=== PATIENT | female | born 1995 | race Two or more races ===

== ENCOUNTER → 2019-06-15 | Outpatient (CLI) | payer MEDICAID ==
[2019-06-15 10:12] LABS: Basophils # (auto) 0 uL; Basophils % (auto) 0.3 % (0.0-2.0); Eosinophils # (auto) 0.1 uL; Eosinophils % (auto) 0.9 % (0.0-7.0); Hemoglobin 11.6 g/dL (12.2-16.2); Lymphocytes # (auto) 1.3 uL; Mean Corpuscular Hemoglobin 29.6 pg (28.0-32.0); Mean Corpuscular Hgb Conc. 34.1 g/dL (32.0-36.0); Mean Corpuscular Volume 86.9 fL (80.0-100.0); Monocytes # (auto) 0.3 uL; Monocytes % (auto) 3.8 % (0.0-12.0); Neutrophils # (auto) 6.5 uL; Nucleated Red Blood Cells % 0.1 %; Platelet Count (auto) 194 10^3/uL (140-450); Red Blood Cells 3.92 10^6/uL (4.0-5.20); Red Cell Distribution Width 13.6 % (11.8-14.3); White Blood Cell 8.2 10^3/uL (4.4-10.8)
== END | disposition home or self-care (01) ==
LOC: LAB 09:45
PROVIDERS: ATTEND Obstetrics & Gynecology
DX: O23.593 Infection of other part of genital tract in pregnancy, third trimester (principal); Z3A.35 35 weeks gestation of pregnancy
CPT/HCPCS: 87081

== ENCOUNTER 2019-07-21 16:17 | Observation (INO) | payer MEDICAID ==
[2019-07-25] MEDS ORDERED: PREN-96 PO (10:17)
== END 2019-07-21 18:03 | disposition home or self-care (01) | DRG 566 ==
LOC: LDRP 16:17
PROVIDERS: ADMIT Obstetrics & Gynecology; ATTEND Obstetrics & Gynecology
DX: O48.0 Post-term pregnancy (principal); Z3A.40 40 weeks gestation of pregnancy
CPT/HCPCS: 59025; 76818; 81002; G0378

== ENCOUNTER 2019-07-23 12:55 | Observation (INO) | payer MEDICAID ==
[~2019-07-23] VITALS: Ht 170.2 cm; Wt 75.7 kg
[2019-07-25] MEDS ORDERED: PREN-96 PO (10:17)
== END 2019-07-23 14:43 | disposition home or self-care (01) | DRG 566 ==
LOC: LDRP 12:55
PROVIDERS: ADMIT Specialist; ATTEND Specialist
DX: O48.0 Post-term pregnancy (principal); Z3A.40 40 weeks gestation of pregnancy
CPT/HCPCS: 59025; 76818; 81002; G0378

== ENCOUNTER → 2023-06-11 | Emergency (ER) | payer MEDICAID ==
[~2023-06-11] VITALS: Ht 162.6 cm; Wt 77.2 kg
[~2023-06-11] MED LIST: AMOX500C2 PO; PREN-96 PO
[2023-06-11 22:30] VITALS: BP 125/82; PULSE 87; RESP 16; O2SAT 97
== END | disposition home or self-care (01) ==
LOC: ER 22:30
DX: O99.611 Diseases of the digestive system complicating pregnancy, first trimester (principal); K08.89 Other specified disorders of teeth and supporting structures; Z3A.11 11 weeks gestation of pregnancy

== ENCOUNTER 2023-12-29 11:26 | Observation (INO) | payer MEDICAID ==
[2023-12-29 12:52] LABS: Basophils # (auto) 0 10 ^3/uL (0-0.2); Eosinophils # (auto) 0 10 ^3/uL (0-0.8); Lymphocytes # (auto) 1.3 10 ^3/uL (0.4-5.4); Mean Corpuscular Hemoglobin 26.7 pg (28.0-32.0); Mean Corpuscular Volume 82.2 fL (80.0-100.0); Red Blood Cells 4.26 10^6/uL (4.0-5.20); White Blood Cell 8.8 10^3/uL (4.4-10.8)
[2023-12-29 12:54] LABS: Basophils % (auto) 0.2 % (0.0-2.0); Eosinophils % (auto) 0.5 % (0.0-7.0); Hemoglobin 11.4 g/dL (12.2-16.2); Lymphocytes % (auto) 14.7 % (10.0-50.0); Mean Corpuscular Hgb Conc. 32.5 g/dL (32.0-36.0); Monocytes # (auto) 0.5 10 ^3/uL (0-1.3); Monocytes % (auto) 5.5 % (0.0-12.0); Neutrophils # (auto) 6.9 10 ^3/uL (1.6-8.6); Neutrophils % (auto) 79.1 % (37.0-80.0); Nucleated Red Blood Cells % 0.1 %; Red Cell Distribution Width 16.2 % (11.8-14.3)
[2023-12-30 08:07] LABS: RPR Non Reactive (Non Reactive)
[2023-12-31 19:06] LABS: Treponema pallidum Ab (FTA-Ab) Non Reactive (Non Reactive)
== END 2023-12-29 13:09 | disposition home or self-care (01) ==
LOC: LDRP 11:26 → UNDOADMOB 11:26 → LDRP 12:02 → UNDODISOB 13:09
PROVIDERS: ADMIT Obstetrics & Gynecology; ATTEND Obstetrics & Gynecology
DX: O48.0 Post-term pregnancy (principal); Z3A.40 40 weeks gestation of pregnancy
CPT/HCPCS: 36415; 59025; 76818; 81002; 85025; 86592; 94760; G0378

== ENCOUNTER 2023-12-31 14:08 | Observation (INO) | payer MEDICAID | END 2023-12-31 17:05 | disposition home or self-care (01) | LOC: LDRP 14:08 → UNDOADMOB 14:08 → LDRP 14:10 | PROVIDERS: ADMIT Obstetrics & Gynecology; ATTEND Obstetrics & Gynecology | DX: O48.0 Post-term pregnancy (principal); O62.9 Abnormality of forces of labor, unspecified; Z3A.40 40 weeks gestation of pregnancy | CPT/HCPCS: 59025; 76818; 81002; 94760; G0378 ==

== ENCOUNTER 2024-01-01 07:37 | Inpatient (IN) | payer MEDICAID ==
[~2024-01-01] VITALS: Ht 160 cm; Wt 83.9 kg
[2024-01-01] MEDS ORDERED: BUTORPHANOL TARTRATE 2 MG/1 ML VIAL IV PRN ×2 (08:15)
[2024-01-01] MEDS ORDERED: PROMETHAZINE HCL 25 MG/ML 1ML IV PRN (08:15)
[2024-01-01] MEDS ORDERED: LIDOCAINE 2%HCL (LOCAL ANESTH.) INJ 20ML MDV IJ PRN (08:15)
[2024-01-01 08:28] LABS: Urine Bacteria FEW /hpf (None Seen); Urine Blood 2+ /uL (Negative); Urine Clarity HAZY (Clear); Urine Color Yellow (Yellow); Urine Protein, UAD TRACE (Negative); Urine Specific Gravity 1.013 (1.001-1.035); Urine Urobilinogen Normal (Negative); Urine WBC 6 /hpf (0 - 5); Urine pH 6.5 (5.0-8.0)
[2024-01-01] MEDS: LACTATED RINGER'S 1,000 ML IV SCH (08:39)
[2024-01-01 08:41] LABS: Amphetamine Screen, Urine Neg (NEGATIVE)
[2024-01-01 08:43] LABS: Barbiturate Scree,Urine Neg (NEGATIVE); Benzodiazephine Screen, Urine Neg (NEGATIVE); Cocaine Screen, Urine Neg (NEGATIVE)
[2024-01-01 08:44] LABS: Cannabinoid Screen, Urine Neg (NEGATIVE); Opiate Scree,Urine Neg (NEGATIVE); Phencyclidine Screen, Urine Neg (NEGATIVE)
[2024-01-01 08:47] LABS: Basophils # (auto) 0 10 ^3/uL (0-0.2); Basophils % (auto) 0.2 % (0.0-2.0); Eosinophils # (auto) 0 10 ^3/uL (0-0.8); Eosinophils % (auto) 0.3 % (0.0-7.0); Hematocrit 37.5 % (36.0-46.0); Lymphocytes # (auto) 1.7 10 ^3/uL (0.4-5.4); Lymphocytes % (auto) 18.6 % (10.0-50.0); Mean Corpuscular Hemoglobin 26.4 pg (28.0-32.0); Mean Corpuscular Volume 82.5 fL (80.0-100.0); Monocytes # (auto) 0.5 10 ^3/uL (0-1.3); Monocytes % (auto) 4.9 % (0.0-12.0); Neutrophils # (auto) 7.1 10 ^3/uL (1.6-8.6); Red Blood Cells 4.55 10^6/uL (4.0-5.20); Red Cell Distribution Width 16.2 % (11.8-14.3); White Blood Cell 9.4 10^3/uL (4.4-10.8)
[2024-01-01 08:59] LABS: Fern Testing Negative
[2024-01-01 09:02] LABS: Alanine Aminotransferase 24 U/L (7-40); Albumin 4.3 g/dL (3.2-4.8); Alkaline Phosphatase 214 U/L (46-116); Anion Gap 10 (5-15); Aspartate Aminotransferase 30 U/L (13-40); BUN/Creatinine Ratio 12.3 (10.0-20.0); Bilirubin, Total 0.4 mg/dL (0.2-1.0); Blood Urea Nitrogen 8 mg/dL (9-23); Calcium 9.5 mg/dL (8.5-10.1); Carbon Dioxide 22 mmol/L (20-30); Chloride 106 mmol/L (98-107); Glucose 96 mg/dL (74-106); Potassium 4.2 mmol/L (3.5-5.1); Sodium 138 mmol/L (136-145)
[2024-01-01 09:03] LABS: Total Protein 7.1 g/dL (5.7-8.2)
[2024-01-01 09:04] LABS: INR 0.95 (0.9-1.15); Partial Thromboplastin Time 30.6 SEC (24.5-34.5)
[2024-01-01] MEDS: PHISODERM TOP SOLN 240ML BTL TOP PRN (09:39)
[2024-01-01] MEDS: DERMOPLAST 60ML BOTTLE TOP PRN (09:39)
[2024-01-01] MEDS: WITCH HAZEL-GLYCERIN PAD TOP PRN (09:39)
[2024-01-01] MEDS: ROPIVACAINE HCL 200 ML ONE (09:42)
[2024-01-01] MEDS ORDERED: LACT. RINGERS/OXYTOCIN 20UNITS 1,000 ML IV SCH (10:45)
[2024-01-01] MEDS ORDERED: TERBUTALINE SULFATE 1 MG/ML 1ML VIAL SC PRN (10:45)
[2024-01-01] MEDS ORDERED: LACT. RINGERS/OXYTOCIN 20UNITS 1,000 ML IV ONE (10:56)
[2024-01-01] MEDS: METHYLERGONOVINE MALEATE 0.2 MG/ML AMP IM ONE (10:58)
[2024-01-01] MEDS: ePHEDrine SULFATE 50 MG/ML AMP ONE (11:23)
[2024-01-01] MEDS: LACT. RINGERS/OXYTOCIN 20UNITS 500 ML IV ONE ×2 (11:32→11:42)
[2024-01-01] MEDS ORDERED: METHYLERGONOVINE MALEATE 0.2 MG/ML AMP IM PRN (12:00)
[2024-01-01] MEDS ORDERED: ACETAMINOPHEN 325 MG TAB PO PRN (12:00)
[2024-01-01] MEDS ORDERED: ONDANSETRON ODT 4 MG TAB PO PRN (12:00)
[2024-01-01] MEDS ORDERED: NALOXONE HCL 0.4 MG/ML VIAL IV ONE (12:00)
[2024-01-01 15:00] VITALS: BP 139/66; PULSE 103; RESP 18; TEMP 98.4; O2SAT 96
[2024-01-01] MEDS: ePHEDrine SULFATE 50 MG/ML AMP IV ONE (17:54)
[2024-01-01 19:12] VITALS: PULSE 90; RESP 20; O2SAT 97
[2024-01-01 19:15] VITALS: BP 143/76; PULSE 90; RESP 20; TEMP 99; O2SAT 99
[2024-01-01] MEDS: DOCUSATE SOD 100 MG CAP PO SCH (22:26)
[2024-01-01] MEDS: IBUPROFEN 600 MG TAB PO PRN (22:26)
[2024-01-01 23:00] VITALS: BP 132/91; PULSE 87; RESP 16; TEMP 98.6; O2SAT 98
[2024-01-02 03:00] VITALS: BP 113/64; PULSE 61; RESP 17; TEMP 98.2; O2SAT 98
[2024-01-02 07:10] VITALS: BP 117/75; PULSE 80; RESP 16; TEMP 98; O2SAT 97
[2024-01-02 11:20] VITALS: BP 125/79; PULSE 87; RESP 16; TEMP 98.6; O2SAT 99
[2024-01-02 12:06] LABS: RPR Non Reactive (Non Reactive)
[2024-01-05 19:06] LABS: Treponema pallidum Ab (FTA-Ab) Non Reactive (Non Reactive)
== END 2024-01-02 12:26 | disposition home or self-care (01) | DRG 560 ==
LOC: LDRP 07:37 → OBSVTOIN 08:05 → NUR 08:06 → LDRP 08:29
PROVIDERS: ADMIT Obstetrics & Gynecology; ATTEND Obstetrics & Gynecology
PROC: 10D07Z6 Extraction of Products of Conception, Vacuum, Via Natural or Artificial Opening (ICD-10-PCS; principal; 2024-01-01)
PROC: 10907ZC Drainage of Amniotic Fluid, Therapeutic from Products of Conception, Via Natural or Artificial Opening (ICD-10-PCS; 2024-01-01)
PROC: 3E0R3BZ Introduction of Anesthetic Agent into Spinal Canal, Percutaneous Approach (ICD-10-PCS; 2024-01-01)
PROC: 00HU33Z Insertion of Infusion Device into Spinal Canal, Percutaneous Approach (ICD-10-PCS; 2024-01-01)
DX: O77.0 Labor and delivery complicated by meconium in amniotic fluid (principal); Z37.0 Single live birth; O48.0 Post-term pregnancy; Z3A.40 40 weeks gestation of pregnancy
CPT/HCPCS: 36415; 59025; 59409; 62282; 80053; 80307; 81001; 81002; 84112; 85025; 85610; 85730; 86592; 86850; 86900; 86901; 94760; 96360; 96361; 96365; 96366; 96372; G0378; J2590

== ENCOUNTER 2024-01-07 00:30 | Emergency (ER) | payer MEDICAID ==
[~2024-01-07] VITALS: Ht 160 cm; Wt 81.3 kg
[2024-01-07 00:47] VITALS: BP 127/75; PULSE 68; RESP 18; TEMP 98
[2024-01-07 01:27] LABS: Basophils # (auto) 0 10 ^3/uL (0-0.2); Eosinophils # (auto) 0.2 10 ^3/uL (0-0.8); Eosinophils % (auto) 2.3 % (0.0-7.0); Mean Corpuscular Hemoglobin 26.8 pg (28.0-32.0); Mean Corpuscular Hgb Conc. 32.4 g/dL (32.0-36.0); Nucleated Red Blood Cells % 0.1 %
[2024-01-07 01:29] LABS: Basophils % (auto) 0.6 % (0.0-2.0); Hematocrit 35.8 % (36.0-46.0); Hemoglobin 11.6 g/dL (12.2-16.2); Lymphocytes # (auto) 2.2 10 ^3/uL (0.4-5.4); Lymphocytes % (auto) 31.5 % (10.0-50.0); Mean Corpuscular Volume 82.6 fL (80.0-100.0); Monocytes # (auto) 0.3 10 ^3/uL (0-1.3); Monocytes % (auto) 4.7 % (0.0-12.0); Neutrophils # (auto) 4.2 10 ^3/uL (1.6-8.6); Neutrophils % (auto) 60.9 % (37.0-80.0); Red Blood Cells 4.33 10^6/uL (4.0-5.20); Red Cell Distribution Width 16.6 % (11.8-14.3); White Blood Cell 6.9 10^3/uL (4.4-10.8)
[2024-01-07 01:42] LABS: Alanine Aminotransferase 43 U/L (7-40); Albumin 4.1 g/dL (3.2-4.8); Alkaline Phosphatase 127 U/L (46-116); Anion Gap 6 (5-15); Aspartate Aminotransferase 39 U/L (13-40); BUN/Creatinine Ratio 11.5 (10.0-20.0); Bilirubin, Total 0.2 mg/dL (0.2-1.0); Blood Urea Nitrogen 7 mg/dL (9-23); Calcium 8.8 mg/dL (8.7-10.4); Carbon Dioxide 25 mmol/L (20-30); Chloride 109 mmol/L (98-107); Glucose 100 mg/dL (74-106); Potassium 3.5 mmol/L (3.5-5.1); Sodium 140 mmol/L (136-145); Total Protein 6.5 g/dL (5.7-8.2)
[2024-01-07 03:09] VITALS: O2SAT 97
== END 2024-01-07 03:16 | disposition home or self-care (01) ==
LOC: ER 00:30
DX: R22.42 Localized swelling, mass and lump, left lower limb (principal); R20.0 Anesthesia of skin
CPT/HCPCS: 36415; 80053; 85025